=== PATIENT | male | born 1955 | race Caucasian/White ===

== ENCOUNTER 2023-07-03 10:42 | Outpatient (OUT) | payer MEDICARE, SELFPAY ==
--- NOTE | 2023-07-03 10:54 | ECG_ITS ---
[facility] Test Date: 2023-07-03 Pat Name: CONCEPCION ADDISON Department: Room: - Gender: Male [employer]: : 1955 Requested By: Kory Hurtado Order Number: [id number] Reading MD: DE MONTANEZ Measurements Intervals [place] Rate: 107 P: TX: QRS: -5 QRSD: 125 T: 82 QT: 355 QTc: 475 Interpretive Statements ATRIAL -FIB/FLUTTER WITH RAPID VENTRICULAR RESPONSE MODERATE INTRAVENTRICULAR CONDUCTION DELAY [110+ ms QRS DURATION] ABNORMAL RHYTHM ECG No previous ECG available for comparison Electronically Signed On 07-05-2023 18:03:31 EDT by DE MONTANEZ
--- NOTE | 2023-07-03 10:54 | XR_ITS ---
The [address] [address] Patient Name: CONCEPCION ADDISON MRN: [id number] date: 1955 Sex: M Assigned Patient Location: ED.MAIN Current Patient Location: ED.MAIN Accession/Order Number: [id number] Exam Date: 07/03/2023 12:15 Report Date: 07/03/2023 12:43 At the request of: VIOLETTE GARNICA Procedure: XR chest 2V EXAM: XR chest 2V HISTORY: PRE OP EXAM COMPARISON: None. TECHNIQUE: PA and lateral views of the chest. FINDINGS: The cardiomediastinal silhouette is normal. No focal consolidation is identified. There is no pneumothorax. No pleural effusion is noted. The osseous structures are intact. XR/XR chest 2V IMPRESSION: No acute cardiopulmonary process. Electronically authenticated by: MARE SILVA Date: 07/03/2023 12:43
[2023-07-03 11:58] LABS: Basophils Absolute Auto 0.2 10^3/uL (0.0-0.1); Basophils Percent Auto 1.4 % (0.2-2.0); Eosinophils Absolute Auto 0.2 10^3/uL (0.0-0.7); Eosinophils Percent Auto 1.7 % (0.9-7.0); Hematocrit 49.4 % (42.0-54.0); Hemoglobin 16.8 g/dL (14.0-18.0); Immature Granulocytes Abs Auto 0.28 10^3/uL (0.00-0.03); Immature Granulocytes Pct Auto 2.5 % (0.0-0.5); Lymphocytes Absolute Auto 2.5 10^3/uL (1.2-3.8); Mean Corpuscular Hemoglobin 30.9 pg (25.9-34.0); Mean Platelet Volume 9.6 fL (9.5-13.5); Monocytes Absolute Auto 1.2 10^3/uL (0.3-0.8); Monocytes Percent Auto 10.3 % (1.7-12.0); Neutrophils Percent Auto 62.1 % (43.0-75.0); Platelet Count 302 10^3/uL (150-450); Red Blood Count 5.43 10^6/uL (4.70-6.10); Red Cell Distribution Width 13.2 % (11.0-15.0); White Blood Count 11.3 10^3/uL (4.0-11.0)
[2023-07-03 12:16] LABS: Partial Thromboplastin Time 31.3 sec (22.3-36.2); Prothrombin Time 10.6 sec (9.0-11.6)
[2023-07-03 12:20] LABS: Anion Gap 12.7; BUN Creatinine Ratio 13.6; Calcium 8.9 mg/dL (8.5-10.1); Carbon Dioxide 27.5 mmol/L (21.0-32.0); Chloride 100 mmol/L (98-107); Estimated GFR (African America >60 (>=60); Estimated GFR (Non-African Ame 58 (>=60); Glucose 141 mg/dL (74-106); Potassium 4.2 mmol/L (3.5-5.1); Sodium 136 mmol/L (136-145)
== END 2023-07-03 10:43 | disposition home or self-care (01) ==
PROVIDERS: Visit Provider Internal Medicine
DX: Z01.812 Encounter for preprocedural laboratory examination (principal); Z01.810 Encounter for preprocedural cardiovascular examination; R05.3 Chronic cough
CPT/HCPCS: 36415; 71046; 80048; 85025; 85610; 85730; 93005

== ENCOUNTER 2023-07-03 12:16 | Emergency (ER) | payer MEDICARE, SELFPAY ==
[2023-07-03 12:22] VITALS: BP 106/84; PULSE 87; RESP 18; TEMP 36.6; O2SAT 96; BMI 26.7
--- NOTE | 2023-07-03 12:53 | ECG_ITS ---
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
--- NOTE | 2023-07-03 13:30 | ED.ARRPALP1 ---
HPI - Arrhythmia/Palpitations General Chief Complaint: Arrhythmia/Palpitations Stated Complaint: IRREGULAR HEART BEAT Time Seen by Provider: 07/03/23 13:21 Source: patient Mode of arrival: walk-in Limitations: no limitations History of Present Illness HPI narrative: Patient sent to the emergency department from Preop testing. Patient was having a preop evaluation for bronchoscopy to be done by Dr. Chew. This patient had an EKG which showed an atrial flutter with a rate of 106. Patient has no previous history of arrhythmia or atrial flutter. He has seen clinical laboratory manager Dr. Mcclain at [place] in the past. Last visit was 6 months ago. Patient denies any chest pain, shortness of breath, or dizziness. He states he feels fine. He does not take any blood thinners. He denies any fever, chills, or new cough. He does not have any complaints. Related Data Home Medications Medication Instructions Recorded Confirmed albuterol sulfate 90 mcg/actuation 2 inh inhalation Q4H PRN shortness 07/03/23 07/03/23 aerosol inhaler of breath or wheezing amlodipine 10 mg tablet 10 mg PO QDAY 07/03/23 07/03/23 atorvastatin 80 mg tablet 80 mg PO QDAY 07/03/23 07/03/23 budesonide-formoterol HFA 160 inhalation 07/03/23 mcg-4.5 mcg/actuation aerosol inhaler (Symbicort) bupropion HCl 150 mg 24 hr tablet, 150 mg PO QDAY 07/03/23 07/03/23 extended release dulaglutide 0.75 mg/0.5 mL 0.75 mg subcut QWEEK 07/03/23 07/03/23 subcutaneous pen injector (Trulicity) empagliflozin 10 mg tablet 10 mg PO QDAY 07/03/23 07/03/23 (Jardiance) fluticasone fur. 100 mcg-umeclid 1 inh inhalation Q24H 07/03/23 07/03/23 62.5 mcg-vilant 25 mcg inhalat.powder (Trelegy Ellipta) fluticasone propionate 50 2 spray intranasal Q12H 07/03/23 07/03/23 mcg/actuation nasal spray,suspension furosemide 40 mg tablet 40 mg PO QDAY 07/03/23 07/03/23 metformin 1,000 mg tablet 1,000 mg PO QDAY 07/03/23 07/03/23 pantoprazole 40 mg tablet,delayed 40 mg PO QDAY 07/03/23 07/03/23 release sodium chloride 0.9 % for 3 ml inhalation Q8H 07/03/23 07/03/23 nebulization spironolactone 25 mg tablet 25 mg PO QDAY 07/03/23 07/03/23 Allergies Allergy/AdvReac Type Severity Reaction Status Date / Time No Known Drug Allergies Allergy Verified 07/03/23 11:11 Review of Systems ROS Status of ROS 10 or more systems reviewed and unremarkable except as noted in history and below [facility] Medical History (Updated 07/03/23 @ 13:47 by Marguerite Caicedo MD) Surgical History (Updated 07/03/23 @ 11:19 by Tennille Mariee NP) Family History (Updated 07/03/23 @ 11:19 by Tennille Mariee NP) Other Family history of diabetes mellitus Family history of heart disease Family history of hypertension Family history of lung cancer Family history of myocardial infarction Family history of stroke Social History (Updated 07/03/23 @ 11:15 by Tennille Mariee NP) Within the past year, how often did you have a drink containing alcohol: 2-4 times a month Smoking status: Current every day smoker What tobacco products do you use: cigarettes Pack-years instructions: Please document either packs per day or cigarettes per day in order for pack years to calculate correctly. If using both packs per day and cigarettes per day, please make sure that they denote the same thing. If they differ, pack-years will calculate based on packs per day. Packs Per Day Cigarettes Per Day 1/4 of a pack 5 1/2 a pack 10 3/4 of a pack 15 1 pack 20 1.5 pack 30 2 packs 40 2.5 packs 50 3 packs 60 Cigarettes per day: 40 Years smoked: 50 Smoking pack-years: 100.00 Non-prescribed substance use: denies use Highest level of school completed/degree received: high school graduate Exam Narrative Exam Narrative: Nurses notes and vital signs reviewed and patient is not hypoxic. General: Nontoxic, Well-appearing and in no apparent distress. Skin: Warm, dry, no pallor noted. No Rash Head: Normocephalic, atraumatic. Neck: Supple, non-tender. Eye: Pupils are equal, round and EOMI. No scleral icterus. Ears, Nose, Mouth, and Throat: TM clear, no posterior oropharynx erythema or nasal mucosal hypertrophy, uvula is mid-line Oral mucosa is moist Cardiovascular: Regular Rate and Rhythm without murmur, gallop or rub. Respiratory: No accessory muscle use or respiratory distress. Lungs occasional bilateral rhonchi Chest Wall: no tenderness Back: No midline thoracic or lumbar vertebral tenderness. No CVA tenderness Musculoskeletal: normal ROM, no calf or popliteal tenderness, no lower extremity edema/swelling GI: Abdomen is soft, non-distended. Normal bowel sounds. No masses appreciated. No tenderness to palpation. No rebound, guarding, or rigidity noted. Neurological: A&O x4. No cranial nerve dysfunction observed. No truncal ataxia. Moves all extremities. Sensation intact. Psychiatric: Cooperative and interactive. Normal mood and affect. Constitutional Vital Signs, click to edit/add: Last Vital Signs Temp 97.8 F 07/03/23 12:22 Pulse 87 07/03/23 12:22 Resp 18 07/03/23 12:22 BP 106/84 07/03/23 12:22 Pulse Ox 96 07/03/23 12:22 O2 Del Method Room Air 07/03/23 12:22 Course Vital Signs Vital signs: Vital Signs Temperature 97.8 F 07/03/23 12:22 Pulse Rate 87 07/03/23 12:22 Respiratory Rate 18 07/03/23 12:22 Blood Pressure 106/84 07/03/23 12:22 Pulse Oximetry 96 07/03/23 12:22 Oxygen Delivery Method Room Air 07/03/23 12:22 Temperature 97.8 F 07/03/23 12:22 Pulse Rate 87 07/03/23 12:22 Respiratory Rate 18 07/03/23 12:22 Blood Pressure 106/84 07/03/23 12:22 Pulse Oximetry 96 07/03/23 12:22 Oxygen Delivery Method Room Air 07/03/23 12:22 MDM - Arrhythmia/Palpitations MDM Narrative Medical decision making narrative: Lab studies were done and are unremarkable. EKG in the emergency department shows a sinus rhythm at 87 bpm without any acute ischemic changes. There is no arrhythmia noted. On review of the EKG from preop is a possibility that this could be baseline artifact. Patient does not have any symptoms. I discussed the findings with Dr. Brambila, who is the clinical laboratory manager occupational health nurse supervisor today for advice is no need to start the patient on blood thinners currently and the patient can follow-up with them on Thursday morning as an outpatient. The meantime patient will return if he develops any symptoms or if he has any other problems or concerns. At this time the patient is without objective evidence of an acute process requiring hospitalization or inpatient management. The patient has remained hemodynamically stable. No additional indication for emergent studies at this time. I answered all questions. Discussed discharge instructions including standard anticipatory guidance and what should prompt a return to the emergency department, including if they get worse are not getting better or develops any new or concerning symptoms. I've given them specific time frame in which to follow-up, and who to follow-up with. The patient demonstrates understanding. Patient is nontoxic and stable for discharge with outpatient follow-up. This note was created with the assistance of a speech recognition program. Although the intention is to generate documents that actually reflects the content of the visit, no guarantees can be provided that every mistake has been identified and corrected by editing. Differential Diagnosis Differential diagnosis: Likely palpitations, sinus tachycardia, artial fibrillation, artial flutter, ventricular premature beats and supraventricular tachycardia Medical Records Attestation: I reviewed the patient's medical records. Lab Data Attestation: I reviewed the patient's lab results. ECG Data Attestation: I personally reviewed and interpreted this ECG as follows: Discharge Plan Discharge Chief Complaint: Arrhythmia/Palpitations Clinical Impression: EKG abnormality Patient Disposition: Home, Self-Care Time of Disposition Decision: 13:45 Condition: Good Mode of Transportation: Private Vehicle Prescriptions / Home Meds: No Action albuterol sulfate 90 mcg/actuation HFA aerosol inhaler 2 inh INHALATION Q4H PRN (Reason: shortness of breath or wheezing) amlodipine 10 mg tablet 10 mg PO QDAY atorvastatin 80 mg tablet 80 mg PO QDAY bupropion HCl 150 mg tablet extended release 24 hr 150 mg PO QDAY budesonide-formoterol [Symbicort] 160-4.5 mcg/actuation HFA aerosol inhaler INHALATION Trulicity 0.75 mg/0.5 mL pen injector 0.75 mg SUBCUT QWEEK Jardiance 10 mg tablet 10 mg PO QDAY Trelegy Ellipta 100-62.5-25 mcg blister with device 1 inh INHALATION Q24H fluticasone propionate 50 mcg/actuation spray,suspension 2 spray INTRANASAL Q12H furosemide 40 mg tablet 40 mg PO QDAY metformin 1,000 mg tablet 1,000 mg PO QDAY pantoprazole 40 mg tablet,delayed release (DR/EC) 40 mg PO QDAY sodium chloride 0.9 % solution for nebulization 3 ml INHALATION Q8H spironolactone 25 mg tablet 25 mg PO QDAY Instructions: Atrial Flutter (ED) Additional Instructions: Follow-up with your clinical laboratory manager in the morning for reevaluation. Return to the emergency department with a consequence was discussed. Stand Alone Forms: Portal Instructions Discharge Date/Time: 07/03/23 14:06
--- NOTE | 2023-07-03 13:32 | PC.NURSE ---
PT WAS GETTING PRE- SURGICAL TESTING DONE AND WAS TOLD HE WAS IN ATRIAL FLUTTER AND TO GO TO ER FOR FURTHER EVALUATION. PT IS ASYMPTOMATIC
== END 2023-07-03 14:06 | disposition home or self-care (01) ==
PROVIDERS: Emergency Provider Emergency Medicine
DX: Z01.812 Encounter for preprocedural laboratory examination (principal); Z01.810 Encounter for preprocedural cardiovascular examination; R05.3 Chronic cough; R94.31 Abnormal electrocardiogram [ECG] [EKG]; E11.9 Type 2 diabetes mellitus without complications; I50.9 Heart failure, unspecified; I25.2 Old myocardial infarction; Z79.899 Other long term (current) drug therapy; Z79.84 Long term (current) use of oral hypoglycemic drugs; F17.210 Nicotine dependence, cigarettes, uncomplicated
CPT/HCPCS: 36415; 71046; 80048; 83735; 83880; 84443; 84484; 85025; 85610; 85730; 93005; 99283